=== PATIENT | male | born 1995 | race Caucasian/White ===

== ENCOUNTER 2018-12-09 17:26 | Emergency (ER) | payer OTHER ==
[~2018-12-09] VITALS: Ht 170.2 cm; Wt 93.9 kg
[2018-12-09 17:49] VITALS: Ht 170.2 cm; Wt 93.9 kg
[2018-12-09 19:00] VITALS: BP 114/71
== END 2018-12-09 19:00 | disposition home or self-care (01) ==
LOC: ED 17:26
DX: J02.9 Acute pharyngitis, unspecified (principal); J06.9 Acute upper respiratory infection, unspecified

== ENCOUNTER 2019-01-17 07:13 | Emergency (ER) | payer OTHER ==
[~2019-01-17] VITALS: Ht 172.7 cm; Wt 92.1 kg
[2019-01-17 07:19] VITALS: BP 126/78
== END 2019-01-17 07:45 | disposition home or self-care (01) ==
LOC: ED 07:13
DX: B34.9 Viral infection, unspecified (principal); J45.909 Unspecified asthma, uncomplicated